=== PATIENT | male | born 1995 | race Caucasian/White ===

== ENCOUNTER 2019-09-25 15:37 | Emergency (ER) | payer OTHER, MEDICAID, SELFPAY ==
[2019-09-25 15:48] VITALS: BP 139/79; PULSE 87; RESP 16; TEMP 36.9; O2SAT 98; BMI 38.0
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
[2019-09-25 18:08] LABS: Add Manual Diff / Slide Review NO; Basophils Absolute Auto 0 /uL (0-100); Basophils Percent Auto 0.4 % (0-2); Eosinophils Absolute Auto 100 /uL (0-450); Eosinophils Percent Auto 0.9 % (2-4); Hematocrit 43.4 % (41-53); Hemoglobin 14.7 g/dL (13.5-17.5); Lymphocytes Absolute Auto 2300 /uL (1100-4500); Lymphocytes Percent Auto 35.7 % (25-40); Mean Corpuscular HGB Conc 33.9 % (30-36); Mean Corpuscular Hemoglobin 30.4 PG (26-34); Mean Corpuscular Volume 89.6 fL (80-100); Monocytes Absolute Auto 700 /uL (0-900); Monocytes Percent Auto 10.1 % (3-14); Neutrophils Absolute Auto 3400 /uL (1500-7000); Neutrophils Percent Auto 52.9 % (50-75); Platelet Count 240 X10^3/uL (150-400); Red Blood Cell Count 4.84 X10^6/uL (4.5-5.9); Red Cell Distribution Width 13.7 % (11.6-14.8); White Blood Cell Count 6.5 X10^3/uL (4.5-11.0)
[2019-09-25 18:11] LABS: UR Morphine/Opiate cutoff 300 Negative (Negative); Ur Creatinine Normal (Normal); Ur Specific Gravity Normal (Normal); Urine Cocaine Negative (Negative); Urine Tetrahydrocannabinol Negative (Negative); Urine pH Normal (Normal)
[2019-09-25 18:12] LABS: Urine Amphetamines Negative (Negative); Urine Barbiturates Negative (Negative); Urine Benzodiazepines Negative (Negative); Urine MDMA Negative (Negative); Urine Methadone Negative (Negative); Urine Methamphetamines Negative (Negative); Urine Oxycodone Negative (Negative); Urine Phencyclidine Negative (Negative); Urine Tricyclic Antidepressant Negative (Negative)
[2019-09-25 18:29] LABS: Acetaminophen < 10 ug/mL (10-30); Alanine Aminotransferase 46 IU/L (<50); Albumin 4.6 g/dL (3.5-5.0); Albumin Globulin Ratio 1.4 (1.0-2.8); Alkaline Phosphatase 69 U/L (38-126); Aspartate Aminotransferase 35 IU/L (17-59); BUN Creatinine Ratio 15.6 (6-22); Bilirubin Total 0.5 mg/dL (0.2-1.3); Blood Urea Nitrogen 14 mg/dL (9-20); Calcium 9.4 mg/dL (8.4-10.2); Carbon Dioxide 29 mmol/L (22-32); Chloride 102 mmol/L (98-107); Estimated Glomerular Filt Rate > 60.0 mL/min (>60); Ethanol (ETOH) < 10 mg/dL; Globulin 3.3 g/dL (1.7-4.1); Glucose 90 mg/dL (70-100); HEMOLYSIS < 15 (0-50); Salicylate < 1.0 mg/dL (<20); Sodium 140 mmol/L (137-145); Total Protein 7.9 g/dL (6.3-8.2)
[2019-09-25 19:14] LABS: Free T4, Direct Thyroxine 0.93 ng/dL (0.78-2.19)
[2019-09-25 19:28] LABS: Thyroid Stimulating Hormone 4.76 uIU/mL (0.47-4.68)
[2019-09-25 20:00] VITALS: BP 130/78; PULSE 87; RESP 18; O2SAT 95
--- NOTE | 2019-09-25 20:05 | CM.SWNOTE ---
Addendum entered by Thea Ridley R.N. 09/25/19 21:23: Suman/Rn [facility], [facility], [facility], all don't have beds available, [facility] [place] have beds and are reviewing for possible placement. Thea Ridley RN. Original Note: CM/account services manager notes: EMR reviewed: patient is a 24 yr old male who presented to the ED with auditory and visual hallucinations. Patient has been DX with Schizophrenia in 2011 while in [place] [facility] at [facility] and does not currently take any medications. Patient does not currently have a counselor. PCP or Psychiatrist. Patient lives with his , children and patients father. Patient has a Hx of meth and Heroin use but has been sober for the last 5 years. Has used Alcohol in the past to help cope with Auditory and Visual hallucinations but has not drank in the last few months. patient does have Suicidal thoughts from time to time but does not have a plan. Patient states he has thought of Rage and of hurting people when his auditory hallucinations are bad. CM/Rn asked if he thinks of anyone inparticular patient stated he does not think of anyone specifically. Patients was at the bedside during CM/RN visit and seemed to calm patient during conversation. Patient is open to getting some help and is voluntarily seeking inpatient treatment. Insurance: [facility] and medicaid. CM/Rn contacted [facility] who does have a bed and are reviewing patients clinicals to determine if they will accept patient. Thea Ridley RN SOCKET PULLER - Inclusion Specialist Assessment SOCKET PULLER - Inclusion Specialist Assessment Start: 09/25/19 19:47 Freq: Status: Active Protocol: Document 09/25/19 19:47 HS (Rec: 09/25/19 20:05 [id number]) SOCKET PULLER/Inclusion Specialist Assessment Time Spent with Patient Start date 09/25/19 Visit Start Time 18:10 End date 09/25/19 Visit End Time 19:05 Total time Care Management spent on 120 mins patient visit-in minutes Mental Health Screening Include Onset, Duration, Intensity Presenting Problem Patient arrived to the ED brought in by his for auditory and visual hallucinations. Precipitating Event(s) patient has struggled with aditory and visual hallucinations since he was 14 years old. Paitent states that he feels axious and parinoid often. No identified current trigger. Current Behavioral Health Provider(s) no current behabioral health Include Facility, Provider, Ph. # provider, patient not currently taking any medicaitons. Psych. Hx Mental Health and Chemical Patient has a Hx of Meth and Dependency heroin addiciton but has been sober for the last 5 years. pamela also has used alcohol to help with hallucinations but has not drank in the last 4 months. Psychiatric Hospitalizations (date(s)/ Pamela was hospitalized while location) in [facility] at [facility] for schizophrenia in 2011. Pamela stopped taking perscribed medicaitons when released from [facility]. Support System(s) patient has a very supportive , children and currently lives with patients family and father. School/Work Patient currently unemployed reciently let go from privious employment Mental Status Orientation (Person/Place/Time) Pamela was alert and oriented x3 at time of CM/RN visit Affect Met with patient with present. Patient was calm, but slow and sad. Thought Content - Specify/Describe Pamela stated he has Auditory Obsessions, Delusions, Hallucinations and visual hallucinations. Patient states that he talkes with people and images of light and sometime shadow creatures present next to the people he is talking to. Patient also says that the voices he hears tell him that his is cheating or present other negative thouhts . Thought Processes (Vmkayjj-Rhepbwwc-Hyim Patient thought process seems Gloseaks-Odboyndw-Hvzghwtxvw- logical with details but with Uaxsprvlrpdncj-Onkbvey-Cmocjogcausc- some disorganization Thought Blocking) Speech (Myficw-Ktjg-Vtbglih-Rapid-Soft- patients speech is slowed, Loud-Pressured) soft and slurred at times Motor (Rkqwsu-Ulvtxtxjv-Fwyr-Other) normal Insight (Present-Partially Present- Present Impaired) Memory (Plwmhuimy-Wwkjqr-Smrrbf, intact Impaired-Intact) Concentration (Intact-Impaired) imparied- patient needed to be re-asked questions periodically to gain attention . Attention (Intact-Impaired) impaired - patinet had a hard time attending during CM/Rn meeting and needed to have questions re-asked periodically. Behavior (Appropriate-Inappropriate) appropriate Risk Assessment Suicidal Ideation (Plan) Yes: patient has thoughts of Suicide but does not currently have a plan Homicidal Ideation (Plan) No Comment Patient does have thoughts of rage from time to time and thoughts of hurting people but no one particularly and has not acted on those feelings.
[2019-09-25] MEDS: OLANZapine ODT 10 MG TAB PO (22:11)
--- NOTE | 2019-09-25 22:11 | PC.NURSE ---
NICOLE at bedside discussing plan of care with patient and . Patient apprehensive about in patient hospitalization secondary to his parole offices and DOC plan. patient states he can't leave the county due to his DOC. He is concerned that he would get in trouble for leaving for inpatient placement. Patient reports his anxiety is increasing I don't want to be locked up again I have been locked up my whole fucking life. I do not want to be locked up and patient contract for safety and agreeable to come back if things change. Patient denies SI/HI at this time.
--- NOTE | 2019-09-25 22:16 | PC.NURSE ---
Patient currently stating that he thinks he is safe to go home after medication and speak with his own PCP about restarting his medication. No current homicidal or suicidal ideation. A&Ox3 with at bedside. They agree to safety plan. Dr. Beyer at bedside.
[2019-09-25 22:33] VITALS: BP 135/89; PULSE 93; RESP 17; TEMP 36.6; O2SAT 96
== END 2019-09-25 22:41 | disposition home or self-care (01) ==
PROVIDERS: Emergency Medicine; Emergency Provider Nurse Practitioner Family
DX: F20.0 Paranoid schizophrenia (principal)
CPT/HCPCS: 36415; 80053; 80305; 80320; 80329; 81003; 84439; 84443; 85025; 99283; 99284; G0480

== ENCOUNTER 2020-07-09 22:05 | Emergency (ER) | payer OTHER, MEDICAID, SELFPAY ==
[2020-07-09 22:14] VITALS: BP 153/100; PULSE 78; RESP 22; TEMP 36.9; O2SAT 97
--- NOTE | 2020-07-09 22:27 | ED.GENADULT ---
HPI - General Adult General Chief complaint: Dizziness Stated complaint: fever, positive COVID Time Seen by Provider: 07/09/20 22:07 Source: patient Mode of arrival: Ambulatory Limitations: no limitations History of Present Illness HPI narrative: Patient is a 24-year-old male who was diagnosed with COVID-19 approximately 4 days ago. He comes to the emergency department this evening because he states that earlier today he felt like he was having problems breathing. He felt like his left hand and left foot were tingling and potentially changing colors. He also was lightheaded. He does not have a pulse oximeter at home. He was concerned about his symptoms because his father has heart problems and he was concerned that potentially he had them as well. He states that he feels somewhat better being here in the emergency department. His is also positive for COVID-19. Related Data Home Medications Medication Instructions Recorded Confirmed No Known Home Medications 09/25/19 09/25/19 Allergies Allergy/AdvReac Type Severity Reaction Status Date / Time No Known Drug Allergies Allergy Verified 09/25/19 15:56 Review of Systems Constitutional Constitutional: Denies body ache(s), Denies chills, Reports fever(s) and Denies headache(s) ENT Ears, Nose, Mouth, and Throat: Denies headache(s) Cardiovascular Cardiovascular: Denies chest pain and Reports dyspnea Respiratory Respiratory: Reports dyspnea Gastrointestinal Gastrointestinal: Denies abdominal pain, Denies nausea and Denies vomiting Genitourinary Genitourinary: Denies dysuria Genitourinary: Denies dysuria Musculoskeletal Musculoskeletal: Reports tingling Integumentary/Breasts Skin/Breast: Denies rash Neurologic Neurologic: Denies headache(s) and Reports tingling Psychiatric Psychiatric: Reports anxiety Patient History Medical History Anxiety (Acute) Depression (Acute) Hallucinations (Acute) PTSD (post-traumatic stress disorder) (Acute) Schizophrenia (Acute) Social History Smoking Status: Current every day smoker alcohol intake: current substance use type: does not use Smoking Status: Current every day smoker tobacco type: vaping Substance Use Type: does not use Exam Initial Vital Signs Initial Vital Signs: Vital Signs Temperature 98.5 F 07/09/20 22:14 Pulse Rate 78 07/09/20 22:14 Respiratory Rate 22 07/09/20 22:14 Blood Pressure 153/100 H 07/09/20 22:14 Pulse Oximetry 97 07/09/20 22:14 Const General: cooperative and comfortable Limitations: mental status not altered HENMT Head: normal to inspection and normocephalic Resp Effort & Inspection: normal respiratory effort Auscultation: clear to auscultation bilaterally Cardio Rate: regular rate Rhythm: regular rhythm Skin Lesions: no lesions Rashes: no rashes Neuro General: patient alert and patient awake Cognition: normal cognition Speech: speech normal Extrem General: normal to inspection and capillary refill normal Psych Appearance: grossly normal and well kempt Course Vital Signs Vital signs: Vital Signs - 8 hr 07/09/20 22:14 Temperature 98.5 F Pulse Rate 78 Respiratory Rate 22 Blood Pressure 153/100 H Pulse Oximetry 97 Medical Decision Making MDM Narrative Medical decision making narrative: Patient not tachypneic, not hypoxic, has a normal left upper extremity and left lower extremity exam. Brisk cap refill. Strong pulses. Lungs are clear. He has known COVID-19. The there is no indication for chest x-ray. No indication for admission to the hospital. Provided reassurance to the patient. Informed him that if his symptoms do worsen her your to have continued problems breathing he did retract emergency department. He expressed understanding and agreement. Discharge Plan Departure Patient Disposition: Home Clinical Impression: COVID-19 Discharge Date/Time: 07/09/20 22:50 Instructions: Coronavirus Disease 2019 Activity Restrictions/Additional Instructions: Your oxygen saturations and exam here in the emergency department are normal. Recommend that you quarantine herself as directed by the CDC guidelines. Contact your primary provider further follow-up. Return to the emergency department for any new or worsening symptoms Prescriptions: No Action No Known Home Medications RF: 0
== END 2020-07-09 22:50 | disposition home or self-care (01) ==
PROVIDERS: Emergency Provider Emergency Medicine
DX: U07.1 COVID-19 (principal); R06.09 Other forms of dyspnea; R50.9 Fever, unspecified; R20.2 Paresthesia of skin; F41.9 Anxiety disorder, unspecified
CPT/HCPCS: 99281

== ENCOUNTER → 2023-03-07 10:35 | Outpatient (CLI) | payer OTHER, MEDICAID, SELFPAY ==
--- NOTE | 2023-03-07 10:37 | DI.RAD.S_ITS ---
PROCEDURE: XR ELBOW LT MIN 3V INDICATIONS: left elbow pain TECHNIQUE: 3 views of the elbow were acquired. COMPARISON: None. FINDINGS: Bones: No acute fractures or dislocations. No suspicious bony lesions. Soft tissues: No elbow joint effusion. No suspicious soft tissue calcifications. IMPRESSION: No acute osseous abnormality. If clinical suspicion and/or symptoms persist, additional imaging with repeat plain films, or advanced imaging (e.g. CT, MRI) may be helpful for further assessment. Approved by: Rickey Bowser M.D. on 03/07/2023 at 12:27
== END ==
PROVIDERS: Referring Provider Physician Assistant; Visit Provider Physician Assistant
DX: M25.522 Pain in left elbow (principal)
CPT/HCPCS: 73080

== ENCOUNTER 2023-04-09 21:11 | Emergency (ER) | payer OTHER, MEDICAID, SELFPAY ==
[2023-04-09 21:15] VITALS: BP 148/82; PULSE 90; RESP 18; TEMP 36.2; O2SAT 97; BMI 47.5
--- NOTE | 2023-04-09 21:20 | DI.RAD.S_ITS ---
PROCEDURE: XR HAND LT MIN 3V INDICATIONS: Injury TECHNIQUE: 3 views of the hand(s) acquired. COMPARISON: None. FINDINGS: Bones: No fractures or dislocations. Carpal bones are normally aligned. No suspicious bony lesions. Soft tissues: No suspicious soft tissue calcifications. IMPRESSION: No trauma found. Dictated by: Joseph Solo M.D. on 04/09/2023 at 22:06 Approved by: Joseph Solo M.D. on 04/09/2023 at 22:07
== END 2023-04-09 23:31 | disposition left against medical advice (07) ==
PROVIDERS: Emergency Provider Emergency Medicine
DX: S69.92XA Unspecified injury of left wrist, hand and finger(s), initial encounter (principal); V00.131A Fall from skateboard, initial encounter
CPT/HCPCS: 73130; 99281

== ENCOUNTER 2024-03-06 18:51 | Emergency (ER) | payer OTHER, MEDICAID, SELFPAY ==
--- NOTE | 2024-03-06 18:54 | DI.RAD.S_ITS ---
PROCEDURE: XR ANKLE RT MIN 3V INDICATIONS: pain after injury TECHNIQUE: 3 views of the ankle were acquired. COMPARISON: None. FINDINGS: Bones: No fractures or dislocations. Ankle mortise is normally aligned. No suspicious bony lesions. Soft tissues: No tibiotalar joint effusion. Achilles tendon appears normal. IMPRESSION: No acute bony abnormality or significant effusion. Dictated by: Henok Zelaya M.D. on 03/06/2024 at 19:26 Approved by: Henok Zelaya M.D. on 03/06/2024 at 19:27
[2024-03-06 18:59] VITALS: BP 143/77; PULSE 88; RESP 16; TEMP 37.2; O2SAT 99; BMI 47.0
--- NOTE | 2024-03-06 19:08 | ED.LOWEXIN ---
HPI - Extremity Injury (Lower) General Chief Complaint: Extremity Injury, Lower Stated Complaint: rt ankle inj Time Seen by Provider: 03/06/24 18:54 Source: patient Mode of arrival: Wheelchair History of Present Illness HPI Narrative: 28-year-old male here for evaluation for right ankle injury. Earlier this morning the patient stated that he tripped and fell and felt a pop in his right ankle. Has had swelling in it since then. Has been ambulatory but as the day has gone on it has become more painful. No other injuries from the event. Related Data Home Medications Medication Instructions Recorded Confirmed No Known Home Medications 09/25/19 09/25/19 Allergies Allergy/AdvReac Type Severity Reaction Status Date / Time No Known Drug Allergies Allergy Verified 09/25/19 15:56 Review of Systems Constitutional Constitutional: Reports system reviewed and no additional complaints, except as documented Musculoskeletal Musculoskeletal: Reports system reviewed and no additional complaints, except as documented Integumentary/Breasts Skin/Breast: Reports system reviewed and no additional complaints, except as documented Neurologic Neurologic: Reports system reviewed and no additional complaints, except as documented Hematologic/Lymphatic On Anticoagulants: No Patient History Medical History PTSD (post-traumatic stress disorder) Schizophrenia Hallucinations Anxiety Depression Social History Smoking Status: Former smoker alcohol intake: current substance use type: does not use Smoking Status: Former smoker tobacco type: vaping Substance Use Type: does not use Exam Initial Vital Signs Initial Vital Signs: Vital Signs Temperature 98.9 F 03/06/24 18:59 Pulse Rate 88 03/06/24 18:59 Respiratory Rate 16 03/06/24 18:59 Blood Pressure 143/77 H 03/06/24 18:59 Pulse Oximetry 99 03/06/24 18:59 Oxygen Delivery Method Room Air 03/06/24 18:59 Cardio Pulses: dorsalis pedis present on the right Skin General: no rashes or lesions noted Neuro Sensory Exam: no sensory deficits noted Extrem Other: No proximal fibular tenderness. Achilles tendon is intact. No tenderness along the medial malleolus. No tenderness of the base of the 5th metatarsal. No tenderness along the Lisfranc joint. Is tender along the lateral malleolus. Swelling along the lateral malleolus. Course Orders Ordered: ED Orders 03/06/24 18:54 XR ankle RT min 3V Stat Vital Signs Vital signs: Vital Signs - 8 hr 03/06/24 18:59 03/06/24 20:09 Temperature 98.9 F Pulse Rate 88 86 Respiratory Rate 16 18 Blood Pressure 143/77 H 149/83 H Pulse Oximetry 99 97 Oxygen Delivery Method Room Air Room Air MDM - Extremity Injury (Lower) Imaging Data Extremity x-ray #1: Radiologist's Impression: PROCEDURE: XR ANKLE RT MIN 3V INDICATIONS: pain after injury TECHNIQUE: 3 views of the ankle were acquired. COMPARISON: None. FINDINGS: Bones: No fractures or dislocations. Ankle mortise is normally aligned. No suspicious bony lesions. Soft tissues: No tibiotalar joint effusion. Achilles tendon appears normal. IMPRESSION: No acute bony abnormality or significant effusion. [facility] Narrative Medical decision making narrative: X-ray shows no signs of fracture or dislocation. He was neurovascularly intact. He was given an Warren bandage for comfort and also crutches for comfort. We did discuss the x-ray findings. Discussed conservative measures that he can try at home for a sprained ankle. Will discharge patient home with instructions for these conservative measures. He was given return precautions. He expressed understanding and agreement. Discharge Plan Departure Patient Disposition: Home Clinical Impression: Ankle sprain Instructions: How to Use Crutches, DI for Ankle Sprain, How To Perform RICE (Rest, Ice, Compress, Elevate), How to Apply an Elastic Wrap on Ankle Activity Restrictions/Additional Instructions: There were no fractures noted on the x-rays today. You can walk on your right leg as tolerated. I do recommend you try to keep it elevated and use ice as much as possible. You can take Tylenol/ibuprofen for any discomfort. Return to the emergency department for new symptoms. Prescriptions: No Action No Known Home Medications Stand Alone Forms: Patient Portal/API, Work Release Note
[2024-03-06 20:09] VITALS: BP 149/83; PULSE 86; RESP 18; O2SAT 97
== END 2024-03-06 20:10 | disposition home or self-care (01) ==
PROVIDERS: Emergency Provider Emergency Medicine
DX: S93.401A Sprain of unspecified ligament of right ankle, initial encounter (principal); W18.40XA Slipping, tripping and stumbling without falling, unspecified, initial encounter
CPT/HCPCS: 73610; 99282

== ENCOUNTER 2024-05-31 10:09 | Emergency (ER) | payer OTHER, MEDICAID, SELFPAY ==
[2024-05-31] VITALS (12 sets, daily range): BP systolic 137–156; BP diastolic 69–106; PULSE 84–104; RESP 16–20; TEMP 37.2; O2SAT 95–98; BMI 43.6
--- NOTE | 2024-05-31 10:19 | DI.RAD.S_ITS ---
PROCEDURE: XR CHEST 1V INDICATIONS: suspected sepsis TECHNIQUE: One view of the chest was acquired. COMPARISON: None. FINDINGS: Surgical changes and devices: None. Lungs and pleura: Submaximal inspiration. No gross infiltrates. No pleural effusions or pneumothorax. Mediastinum: Mediastinal contours appear normal. Heart size is normal. Bones and chest wall: No suspicious bony lesions. Overlying soft tissues appear unremarkable. IMPRESSION: Submaximal inspiration. No gross infiltrates. Dictated by: Shad Alarcon M.D. on 05/31/2024 at 12:40 Approved by: Shad Alarcon M.D. on 05/31/2024 at 12:41
--- NOTE | 2024-05-31 10:28 | EKG_ITS ---
[facility] [address] [place] [address] Test Date: 2024-05-31 Pat Name: Otilio Sanches Department: [facility] Room: Gender: Male Tallow Pumper: : 1995 Requested By: Order Number: [id number] Reading MD: Luis Manuel Joshi MD Measurements Intervals [place] Rate: 95 P: 33 DC: 160 QRS: 8 QRSD: 80 T: 27 QT: 338 QTc: 424 Interpretive Statements Normal sinus rhythm Electronically Signed On 05-31-2024 13:43:49 PDT by Luis Manuel Joshi MD
[2024-05-31] MEDS: SODIUM CHLORIDE 0.9% 1,000 ML 1000 ML IV (10:39)
[2024-05-31] MEDS: ALBUTEROL 2.5 MG/3 ML NEB (ADULT) INH ×2 (10:44→13:13)
[2024-05-31 10:57] LABS: Add Manual Diff / Slide Review NO; Basophils Absolute Auto 100 /uL (0-100); Basophils Percent Auto 0.8 % (0-2); Eosinophils Absolute Auto 100 /uL (0-450); Eosinophils Percent Auto 1.8 % (2-4); Hemoglobin 14.1 g/dL (13.5-17.5); Lymphocytes Absolute Auto 1500 /uL (1100-4500); Lymphocytes Percent Auto 21.5 % (25-40); Mean Corpuscular HGB Conc 33.6 % (30-36); Mean Corpuscular Hemoglobin 29.6 PG (26-34); Monocytes Absolute Auto 700 /uL (0-900); Monocytes Percent Auto 10.3 % (3-14); Neutrophils Absolute Auto 4600 /uL (1500-7000); Neutrophils Percent Auto 65.6 % (50-75); Platelet Count 227 X10^3/uL (150-400); Red Blood Cell Count 4.77 X10^6/uL (4.5-5.9); Red Cell Distribution Width 14.6 % (11.6-14.8); White Blood Cell Count 7.1 X10^3/uL (4.5-11.0)
[2024-05-31 11:05] LABS: INR 1.1 (0.9-1.3); Prothrombin Time 12.8 SECONDS (9.4-12.5)
[2024-05-31 11:08] LABS: PTT Partial Thromboplastin Tim 37 SECONDS (25.1-36.5)
[2024-05-31 11:20] LABS: Adenovirus Not Detected (Not Detect); B. parapertussis Not Detected (Not Detecte); Bordetella pertussis Not Detected (Not Detect); Chlamydophila pneumoniae Not Detected (Not Detect); Coronavirus 229E Not Detected (Not Detect); Coronavirus HKU1 Not Detected (Not Detect); Coronavirus NL 63 Not Detected (Not Detect); Coronavirus OC43 Not Detected (Not Detect); Human Metapneumovirus Not Detected (Not Detect); Human Rhinovirus/Enterovirus Not Detected (Not Detect); Influenza A Not Detected (Not Detect); Influenza B Not Detected (Not Detect); Mycoplasma pneumoniae Not Detected (Not Detect); Parainfluenza Virus 1 Not Detected (Not Detect); Parainfluenza Virus 2 Not Detected (Not Detect); Parainfluenza Virus 3 Not Detected (Not Detect); Parainfluenza Virus 4 Not Detected (Not Detect); Respiratory Syncytial Virus Not Detected (Not Detect); SARS- CoV-2 Not Detected (Not Detecte)
[2024-05-31 11:32] LABS: Alanine Aminotransferase 93 IU/L (<50); Albumin 4.6 g/dL (3.5-5.0); Albumin Globulin Ratio 1.3 (1.0-2.8); Alkaline Phosphatase 74 U/L (38-126); Aspartate Aminotransferase 61 IU/L (17-59); BUN Creatinine Ratio 12.4 (6-22); Bilirubin Total 0.8 mg/dL (0.2-1.3); Blood Urea Nitrogen 11 mg/dL (9-20); Calcium 9.1 mg/dL (8.4-10.2); Carbon Dioxide 25 mmol/L (22-32); Chloride 102 mmol/L (98-107); Estimated Glomerular Filt Rate > 60 mL/min (>60); Globulin 3.6 g/dL (1.7-4.1); Glucose 111 mg/dL (70-100); HEMOLYSIS < 15 (0-50); Lipase 69 U/L (23-300); Sodium 137 mmol/L (137-145); Total Protein 8.2 g/dL (6.3-8.2)
[2024-05-31 11:33] LABS: Lactate (Lactic Acid) 0.9 mmol/L (0.7-2.1)
[2024-05-31 12:08] LABS: Procalcitonin 0.149 ng/mL (<0.5)
--- NOTE | 2024-05-31 12:41 | ED.URI ---
HPI - URI/Sore Throat General Chief Complaint: Upper Respiratory Symptoms Stated Complaint: fever, chest feels tight, hurts to cough Time Seen by Provider: 05/31/24 10:41 Source: patient Mode of arrival: Ambulatory History of Present Illness HPI Narrative: 28 year old male with 4 days duration dry cough, chest pain anterior with coughing, some shortness of breath, no known exposure to persons with recent repsiratory illness symptoms, noleg pain or swelling symptoms, no injury or trauma. No history of chronic heart or lung problems. Related Data Previous Rx's Medication Instructions Recorded albuterol sulfate 90 mcg/actuation 2 puff inhalation Q6H PRN 05/31/24 aerosol inhaler shortness of breath or wheezing #8.5 grams prednisone 20 mg tablet 40 mg (2 x 20 mg) PO DAILY 5 days 05/31/24 #10 tabs Allergies Allergy/AdvReac Type Severity Reaction Status Date / Time No Known Drug Allergies Allergy Verified 05/31/24 10:13 Review of Systems Review of Systems Narrative: see HPI Patient History Medical History (Updated 05/31/24 @ 13:08 by Everton Foreman MD) PTSD (post-traumatic stress disorder) Schizophrenia Hallucinations Anxiety Depression Social History Smoking Status: Former smoker alcohol intake: current substance use type: does not use Smoking Status: Former smoker tobacco type: vaping alcohol intake frequency: holidays/special occasions only Substance Use Type: does not use Exam Narrative Exam Narrative: GENERAL: Well-developed patient, in mild distress. HEAD: Atraumatic. Normocephalic. EYES: Pupils equal round and reactive. Extraocular motions intact. No scleral icterus. No injection or drainage. ENT: Nose without bleeding, purulent drainage. Throat without erythema, tonsillar hypertrophy or exudate. Airway patent. NECK: Trachea midline. Non tender CARDIOVASCULAR: Regular rate and rhythm without murmurs, gallops, or rubs. RESPIRATORY: Clear to auscultation. Breath sounds equal bilaterally. No wheezes, rales, or rhonchi. GASTROINTESTINAL: Abdomen soft, non-tender, nondistended. EXTREMITIES: No edema or joint tenderness. BACK: Nontender without deformity or crepitance. No flank tenderness. NEURO: AOx3. SKIN: No rash or erythema of visible areas Initial Vital Signs Initial Vital Signs: Vital Signs Temperature 98.9 F 05/31/24 10:13 Pulse Rate 104 H 05/31/24 10:13 Respiratory Rate 16 05/31/24 10:13 Blood Pressure 152/99 H 05/31/24 10:13 Pulse Oximetry 95 05/31/24 10:13 Oxygen Delivery Method Room Air 05/31/24 10:13 Course Orders Ordered: Discontinued Medications Albuterol (Albuterol 2.5 Mg/3 Ml Neb (Adult)) 2.5 mg INH NOW ONE Stop: 05/31/24 10:43 Last Admin: 05/31/24 10:44 Dose: 2.5 mg Documented By: LELAND Albuterol (Albuterol 2.5 Mg/3 Ml Neb (Adult)) 2.5 mg INH NOW ONE Stop: 05/31/24 13:04 Last Admin: 05/31/24 13:13 Dose: 2.5 mg Documented By: VALENTINE Sodium Chloride (Normal Saline 0.9%) 1,000 mls @ 1,000 mls/hr IV BOLUS ONE Stop: 05/31/24 11:18 Last Infusion: 05/31/24 12:16 Dose: Infused Documented By: Admin: 05/31/24 10:39 Dose: 1,000 mls/hr Documented By: ANT Methylprednisolone (Methylprednisolone 125 Mg/2 Ml Vial) 125 mg IV NOW ONE Stop: 05/31/24 13:04 Last Admin: 05/31/24 13:13 Dose: 125 mg Documented By: VALENTINE Ondansetron HCl (Ondansetron 4 Mg/2 Ml Inj) 4 mg IV NOW PRN PRN Reason: Nausea And Vomiting Ondansetron HCl (Ondansetron 4 Mg Odt) 4 mg SL NOW PRN PRN Reason: Nausea And Vomiting Vital Signs Vital signs: Vital Signs - 8 hr 05/31/24 12:30 05/31/24 12:31 05/31/24 12:31 Pulse Rate 84 90 Blood Pressure 137/69 Pulse Oximetry 97 97 05/31/24 13:00 05/31/24 13:00 Pulse Rate 90 Blood Pressure 146/74 H Pulse Oximetry 96 MDM - URI/Sore Throat Lab Data Attestation: I reviewed the patient's lab results. 05/31/24 10:40 05/31/24 10:40 Labs: Lab Results 05/31/24 05/31/24 Range/Units 10:30 10:40 WBC 7.1 (4.5-11.0) X10^3/uL RBC 4.77 (4.5-5.9) X10^6/uL Hgb 14.1 (13.5-17.5) g/dL Hct 42.0 (41-53) % MCV 88.0 (80-100) fL MCH 29.6 (26-34) PG MCHC 33.6 (30-36) % RDW 14.6 (11.6-14.8) % Plt Count 227 (150-400) X10^3/uL Neut % (Auto) 65.6 (50-75) % Lymph % (Auto) 21.5 L (25-40) % [place] % (Auto) 10.3 (3-14) % Eos % (Auto) 1.8 L (2-4) % Baso % (Auto) 0.8 (0-2) % Neut # (Auto) 4600 (9462-4141) /uL Lymph # (Auto) 1500 (2784-7983) /uL [place] # (Auto) 700 (0-900) /uL Eos # (Auto) 100 (0-450) /uL Baso # (Auto) 100 (0-100) /uL PT 12.8 H (9.4-12.5) SECONDS INR 1.1 (0.9-1.3) APTT 37 H (25.1-36.5) SECONDS Sodium 137 (137-145) mmol/L Potassium 4.0 (3.4-5.1) mmol/L Chloride 102 (98-107) mmol/L Carbon Dioxide 25 (22-32) mmol/L BUN 11 (9-20) mg/dL Creatinine 0.89 (0.66-1.25) mg/dL Estimated GFR > 60 (>60) mL/min BUN/Creatinine Ratio 12.4 (6-22) Glucose 111 H (70-100) mg/dL Lactate 0.9 (0.7-2.1) mmol/L Calcium 9.1 (8.4-10.2) mg/dL Total Bilirubin 0.8 (0.2-1.3) mg/dL AST 61 H (17-59) IU/L ALT 93 H (<50) IU/L Alkaline Phosphatase 74 (38-126) U/L Total Protein 8.2 (6.3-8.2) g/dL Albumin 4.6 (3.5-5.0) g/dL Globulin 3.6 (1.7-4.1) g/dL Albumin/Globulin Ratio 1.3 (1.0-2.8) Lipase 69 (23-300) U/L Procalcitonin 0.149 (<0.5) ng/mL Chlamy pneumoniae PCR Not detected (Not Detect) Adenovirus (PCR) Not detected (Not Detect) B.parapertussis DNA PCR Not detected (Not Detecte) Coronavirus OC43 (PCR) Not detected (Not Detect) Coronavirus HKU1 (PCR) Not detected (Not Detect) Coronavirus 229E (PCR) Not detected (Not Detect) SARS-CoV-2 (PCR) Not detected (Not Detecte) Coronavirus NL63 (PCR) Not detected (Not Detect) Human Metapneumovir PCR Not detected (Not Detect) Influenza Type A (PCR) Not detected (Not Detect) Influenza Type B (PCR) Not detected (Not Detect) M. pneumoniae (PCR) Not detected (Not Detect) Parainfluenza 1 (PCR) Not detected (Not Detect) Parainfluenza 2 (PCR) Not detected (Not Detect) Parainfluenza 3 (PCR) Not detected (Not Detect) Parainfluenza 4 (PCR) Not detected (Not Detect) RSV (PCR) Not detected (Not Detect) Entero/Rhino (PCR) Not detected (Not Detect) Imaging Data Chest x-ray: Radiologist's Impression: [address] [address] XRay Report Signed Patient: Otilio Sanches III MR#: [id number] : 1995 Acct:[id number] Age/Sex: 28 / M Date of Service: 05/31/24 Loc: ED Accession Number: [id number] Procedure: XR chest 1V Ordering Provider: Everton Foreman MD PROCEDURE: XR CHEST 1V INDICATIONS: suspected sepsis TECHNIQUE: One view of the chest was acquired. COMPARISON: None. FINDINGS: Surgical changes and devices: None. Lungs and pleura: Submaximal inspiration. No gross infiltrates. No pleural effusions or pneumothorax. Mediastinum: Mediastinal contours appear normal. Heart size is normal. Bones and chest wall: No suspicious bony lesions. Overlying soft tissues appear unremarkable. IMPRESSION: Submaximal inspiration. No gross infiltrates. Dictated by: Shad Alarcon M.D. on 05/31/2024 at 12:40 Approved by: Shad Alarcon M.D. on 05/31/2024 at 12:41 ECG Data Attestation: I personally reviewed and interpreted this ECG as follows: Interpretation: Normal sinus rhythm with rate of 95. No obvious ST segment elevation or depression changes. T-wave flattening lead 3, upright T-waves other contiguous inferior leads. TX 160, QRS 80, QTC 424. MDM Narrative Medical decision making narrative: 28-year-old male with a no chronic heart or lung problems with 4 days cough, increased heart rate initially noted, possible SIRS, no fever, sepsis labs and tests ordered per protocol at triage. Screening EKG without obvious ischemic changes. Troponin negative. White blood cell count not elevated. Lactate was normal. Normal renal function. Normal LFTs. Glucose normal. Chest x-ray normal. Respiratory swab negative for COVID and influenza and other pathogens tested. Some wheeze on exam, no oxygen requirement, IV Solu-Medrol since IV access available. SVN albuterol. Prescription for prednisone pulse next few days sent to his pharmacy, also albuterol inhaler to use next few days. Recheck advised with his regular provider Tuesday early next week. Return precautions discussed. Discharge Plan Departure Patient Disposition: Home Clinical Impression: Acute upper respiratory infection, Wheezing Activity Restrictions/Additional Instructions: 4 days duration of cough, slight wheeze on examination but speaking in full sentences, no respiratory distress, normal oxygenation on room air. Chest x-ray showed no obvious pneumonia, per Radiology reading. Swabs for influenza and COVID and other viral illnesses were negative. Screening labs not suggestive of severe sepsis. Symptoms most consistent with upper respiratory viral infection with secondary wheezing. Steroids initiated. Breathing treatment given. Further steroids by mouth advised next few days, and use of inhaler next few days at home. Recheck with your regular doctor early next week advised. Return to this/nearest emergency department for any change worsening symptoms or any concerns prior Prescriptions: New prednisone 20 mg tablet 40 mg PO DAILY 5 Days Qty: 10 0RF albuterol sulfate 90 mcg/actuation HFA aerosol inhaler 2 puff inhalation Q6H PRN (Reason: shortness of breath or wheezing) Qty: 8.5 0RF Stand Alone Forms: Patient Portal/API
[2024-05-31] MEDS: methylPREDNISolone 125 MG/2 ML VIAL IV (13:13)
== END 2024-05-31 13:40 | disposition home or self-care (01) ==
PROVIDERS: Emergency Provider Emergency Medicine
DX: J06.9 Acute upper respiratory infection, unspecified (principal); R06.2 Wheezing; R05.9 Cough, unspecified; R06.02 Shortness of breath; Z11.52 Encounter for screening for COVID-19
CPT/HCPCS: 36415; 71045; 80053; 83605; 83690; 84145; 85025; 85610; 85730; 87040; 87633; 93005; 93010; 94640; 96361; 96374; 99284; J2919; J7613

== ENCOUNTER 2025-04-03 20:14 | Emergency (ER) | payer OTHER, MEDICAID, SELFPAY ==
[2025-04-03] VITALS (13 sets, daily range): BP systolic 125–175; BP diastolic 67–107; PULSE 80–109; RESP 14–22; TEMP 36.8; O2SAT 93–98; BMI 51.3
--- NOTE | 2025-04-03 20:17 | DI.RAD.S_ITS ---
PROCEDURE: XR CHEST 1V INDICATIONS: Chest Pain TECHNIQUE: One view of the chest was acquired. COMPARISON: [facility], CR, XR CHEST 1V, 05/31/2024, 10:40. FINDINGS: Surgical changes and devices: None. Lungs and pleura: Lungs are clear. No pleural effusions or pneumothorax. Mediastinum: Mediastinal contours appear normal. Heart size is normal. Bones and chest wall: No suspicious bony lesions. Overlying soft tissues appear unremarkable. IMPRESSION: No acute pulmonary process. Dictated by: Lynne Richardson M.D. on 04/03/2025 at 21:20 Approved by: Lynne Richardson M.D. on 04/03/2025 at 21:20
--- NOTE | 2025-04-03 20:21 | EKG_ITS ---
[address] [address] Test Date: 2025-04-03 Pat Name: Otilio Sanches Department: [facility] Room: Gender: Male [employer]: [place] : 1995 Requested By: Order Number: [id number] Reading MD: Luis Manuel Joshi MD Measurements Intervals [place] Rate: 100 P: 37 LA: 172 QRS: 0 QRSD: 90 T: 30 QT: 352 QTc: 454 Interpretive Statements Normal sinus rhythm Electronically Signed On 04-04-2025 10:49:43 PDT by Luis Manuel Joshi MD
--- NOTE | 2025-04-03 20:27 | DI.CT.S_ITS ---
PROCEDURE: CT HEAD/BRAIN WO CON INDICATIONS: altered mental status, uncontrolled BP, chest pain TECHNIQUE: Noncontrast 4.5 mm thick angled axial sections acquired from the foramen magnum to the vertex, with coronal and sagittal reformats. For radiation dose reduction, the following was used: automated exposure control, adjustment of mA and/or kV according to patient size. COMPARISON: CT, CT BRAIN WO CON, 08/19/2015, 17:44. FINDINGS: Image quality: Diagnostic. CSF spaces: Basal cisterns are patent. No extra-axial fluid collections. Ventricles are normal in size and shape. Brain: No midline shift. No intracranial mass effect or hemorrhage. Valles- white matter interface is normal. Skull and face: Calvarium and visualized facial bones are intact, without suspicious lesions. Sinuses: Visualized sinuses and mastoids are clear. IMPRESSION: No acute intracranial pathology. Dictated by: Lynne Richardson M.D. on 04/03/2025 at 21:07 Approved by: Lynne Richardson M.D. on 04/03/2025 at 21:07
[2025-04-03] MEDS: ASPIRIN 81 MG CHEW TAB 324 MG PO (20:30)
[2025-04-03] MEDS: LABETALOL 20 MG/4 ML SYRINGE IV (20:31)
[2025-04-03 20:43] LABS: Add Manual Diff / Slide Review NO; Hematocrit 41.2 % (41-53); Hemoglobin 13.8 g/dL (13.5-17.5); Lymphocytes Absolute Auto 2000 /uL (1100-4500); Mean Corpuscular HGB Conc 33.4 % (30-36); Mean Corpuscular Hemoglobin 30.1 PG (26-34); Mean Corpuscular Volume 90.1 fL (80-100); Platelet Count 264 X10^3/uL (150-400)
[2025-04-03 20:50] LABS: INR 1.0 (0.9-1.3); Prothrombin Time 11.7 SECONDS (9.4-12.5)
[2025-04-03 20:53] LABS: PTT Partial Thromboplastin Tim 30 SECONDS (25.1-36.5)
[2025-04-03 20:56] LABS: Alanine Aminotransferase 230 IU/L (<50); Albumin 4.7 g/dL (3.5-5.0); Albumin Globulin Ratio 1.2 (1.0-2.8); Alkaline Phosphatase 66 U/L (38-126); Blood Urea Nitrogen 11 mg/dL (9-20); Calcium 9.7 mg/dL (8.4-10.2); Carbon Dioxide 27 mmol/L (22-32); Chloride 103 mmol/L (98-107); Creatine Kinase 106 U/L (55-170); Estimated Glomerular Filt Rate > 60 mL/min (>60); Globulin 3.8 g/dL (1.7-4.1); Glucose 90 mg/dL (70-99); HEMOLYSIS < 15 (0-50); Lipase 104 U/L (23-300); Magnesium 2.3 mg/dL (1.6-2.3); Potassium 3.5 mmol/L (3.4-5.1); Sodium 139 mmol/L (137-145); Total Protein 8.5 g/dL (6.3-8.2)
[2025-04-03 21:07] LABS: NT-proBNP (BNP-Adult 18+) < 20 pg/mL (<125); Troponin I < 0.012 ng/mL (0.01-0.034)
--- NOTE | 2025-04-03 21:18 | ED_ITS ---
HPI - General Adult General Chief complaint: Altered Mental Status Stated complaint: Chest Pain, Fatigue, Confusion Time Seen by Provider: 04/03/25 20:20 Source: patient and family Mode of arrival: Wheelchair History of Present Illness HPI narrative: 29-year-old gentleman with a BMI of 51, severe sleep apnea, untreated hypertension brought in by his with complaints of altered mental status worsening over the course of today. He reports that he has been having difficulty with his sleep apnea mask and has not appointment with his physician to discuss this tomorrow. Denies any recreational drug or alcohol use. No fevers or chills. Does note headache and fatigue.On initial presentation he has significantly somnolent, hypertensive, complaining of chest pain and headache. Related Data Previous Rx's ?Medication ?Instructions ?Recorded albuterol sulfate 90 mcg/actuation 2 puff inhalation Q 6H PRN 05/31/24 aerosol inhaler shortness of breath or wheez ing #8.5 grams Allergies Allergy/AdvReac Type Severity Reaction Status Date / Time No Known Drug Allergies Allergy Verified 05/31/24 10:13 Review of Systems Review of Systems Narrative: Pertinent positive and negative findings as per HPI Patient History Medical History (Updated 04/03/25 @ 23:19 by Talisha Matamoros MD) PTSD (post-traumatic stress disorder) Schizophrenia Hallucinations Anxiety Depression Social History Smoking Status: Never smoker alcohol intake: current substance use type: does not use Smoking Status: Never smoker tobacco type: vaping alcohol intake frequency: holidays/special occasions only Exam Initial Vital Signs Initial Vital Signs: Vital Signs Pulse Oximetry 95 04/03/25 20:19 General: BMI 51, somnolent but arousable and can answer questions, complaining of headache HEENT: Moist mucous membranes, normal sclera with reactive pupils, midposition Respiratory: Lungs are clear to auscultation, no wheezing no rales no rhonchi. Cardiac: Tachycardic but otherwise Regular rate and rhythm no murmurs no bruits Abdomen: Soft, nontender, no rebound or guarding, no flank pain Skin: Warm and dry, no rashes Neurologic: Somnolent but responsive, moving all extremities Extremities: No trauma, well perfused Psych: Cooperative, minimally interactive, poor eye contact Course Orders Ordered: ED Orders 04/03/25 20:17 XR chest 1V Stat EKG-12 Lead Stat EKG-12 Lead Stat 04/03/25 20:27 CT head/brain wo con Stat 04/03/25 20:35 Complete Blood Count AUTO DIFF Stat Comprehensive Metabolic Panel Stat ETOH [Ethanol (ETOH)] Stat Lipase Stat Magnesium Stat NT-proBNP (BNP-Adult 18+) Stat PTT Partial Thromboplastin [place] Stat Prothrombin Time INR Stat Troponin & CK Cardiac Panel Stat 04/03/25 21:41 VBG [Venous Blood Gas] STAT 04/03/25 21:57 Venous Blood Gas Routine Discontinued Medications Aspirin (Aspirin 81 Mg Chew Tab) 324 mg PO NOW ONE Stop: 04/03/25 20:18 Last Admin: 04/03/25 20:30 Dose: 324 mg Documented By: JESSIKA Labetalol HCl (Labetalol 20 Mg/4 Ml Syringe) 20 mg IV NOW ONE Stop: 04/03/25 20:28 Last Admin: 04/03/25 20:31 Dose: 20 mg Documented By: JESSIKA Vital Signs Vital signs: Vital Signs - 8 hr 04/03/25 20:19 04/03/25 20:20 04/03/25 20:20 Temperature Pulse Rate 109 H Respiratory Rate Blood Pressure 175/107 H Pulse Oximetry 95 96 Oxygen Delivery Method Oxygen Flow Rate 04/03/25 20:24 04/03/25 20:30 04/03/25 20:36 Temperature 98.3 F Pulse Rate 106 H 100 H 95 H Respiratory Rate 22 Blood Pressure 175/107 H Pulse Oximetry 95 96 94 Oxygen Delivery Method Room Air Oxygen Flow Rate 04/03/25 20:36 04/03/25 20:38 04/03/25 20:38 Temperature Pulse Rate 86 Respiratory Rate Blood Pressure 125/83 131/73 Pulse Oximetry 95 Oxygen Delivery Method Oxygen Flow Rate 04/03/25 20:56 04/03/25 20:56 04/03/25 21:00 Temperature Pulse Rate 80 82 Respiratory Rate 14 17 Blood Pressure 133/74 Pulse Oximetry 93 96 Oxygen Delivery Method Oximask Oxygen Flow Rate 2 04/03/25 21:00 04/03/25 21:30 04/03/25 21:30 Temperature Pulse Rate 80 Respiratory Rate 16 Blood Pressure 127/67 139/85 Pulse Oximetry 93 Oxygen Delivery Method Oxygen Flow Rate 04/03/25 22:00 04/03/25 22:00 04/03/25 22:30 Temperature Pulse Rate 83 80 Respiratory Rate 18 16 Blood Pressure 155/90 H Pulse Oximetry 97 96 Oxygen Delivery Method Oxygen Flow Rate 04/03/25 22:32 04/03/25 22:32 04/03/25 22:32 Temperature Pulse Rate 80 Respiratory Rate 17 Blood Pressure 138/84 139/84 Pulse Oximetry 98 Oxygen Delivery Method Oxygen Flow Rate 04/03/25 23:00 Temperature Pulse Rate 83 Respiratory Rate Blood Pressure Pulse Oximetry Oxygen Delivery Method Oxygen Flow Rate Medical Decision Making Lab Data 04/03/25 20:35 04/03/25 20:35 Labs: Lab Results 04/03/25 04/03/25 Range/Units 20:35 21:57 WBC 8.8 (4.5-11.0) X10^3/uL RBC 4.57 (4.5-5.9) X10^6/uL Hgb 13.8 (13.5-17.5) g/dL Hct 41.2 (41-53) % MCV 90.1 (80-100) fL MCH 30.1 (26-34) PG MCHC 33.4 (30-36) % RDW 15.0 H (11.6-14.8) % Plt Count 264 (150-400) X10^3/uL Neut % (Auto) 66.3 (50-75) % Lymph % (Auto) 22.8 L (25-40) % [place] % (Auto) 8.8 (3-14) % Eos % (Auto) 1.3 L (2-4) % Baso % (Auto) 0.8 (0-2) % Neut # (Auto) 5800 (7778-4656) /uL Lymph # (Auto) 2000 (6142-7429) /uL [place] # (Auto) 800 (0-900) /uL Eos # (Auto) 100 (0-450) /uL Baso # (Auto) 100 (0-100) /uL PT 11.7 (9.4-12.5) SECONDS INR 1.0 (0.9-1.3) APTT 30 (25.1-36.5) SECONDS VBG pH 7.33 (7.33-7.43) VBG pCO2 43.9 L (45-50) mmHg VBG pO2 41 (35-45) mmHg VBG HCO3 23 L (24-28) mmol/L VBG Total CO2 22 L (24-29) mmol/L VBG O2 Saturation 72 (70-75) % VBG Base Excess -2.7 L (0-4) mmol/L Sodium 139 (137-145) mmol/L Potassium 3.5 (3.4-5.1) mmol/L Chloride 103 (98-107) mmol/L Carbon Dioxide 27 (22-32) mmol/L BUN 11 (9-20) mg/dL Creatinine 0.87 (0.66-1.25) mg/dL Estimated GFR > 60 (>60) mL/min BUN/Creatinine Ratio 12.6 (6-22) Glucose 90 (70-99) mg/dL Calcium 9.7 (8.4-10.2) mg/dL Magnesium 2.3 (1.6-2.3) mg/dL Total Bilirubin 0.5 (0.2-1.3) mg/dL AST 143 H (17-59) IU/L ALT 230 H (<50) IU/L Alkaline Phosphatase 66 (38-126) U/L Total Creatine Kinase 106 (55-170) U/L Troponin I < 0.012 (0.01-0.034) ng/mL NT-Pro-B Natriuret Pep < 20 (<125) pg/mL Total Protein 8.5 H (6.3-8.2) g/dL Albumin 4.7 (3.5-5.0) g/dL Globulin 3.8 (1.7-4.1) g/dL Albumin/Globulin Ratio 1.2 (1.0-2.8) Lipase 104 (23-300) U/L Ethyl Alcohol < 10 (<10) mg/dL MDM Narrative Medical decision making narrative: CC: Chest pain, fatigue, headache, confusion Complicating co-morbidities: BMI of 51, sleep apnea inadequately treated, untreated hypertension, acute marital stressors with his choosing to not stayed home for the last 2 days Chart notes indicate that he may have a diagnosis of schizophrenia Data collected from: patient, Differential considered: Blood pressure was initially 1 and 75/107 possibility of hypertensive crisis with head pain, confusion and chest pain entertained. Acute coronary syndrome, intoxication, acute on chronic respiratory failure secondary to his sleep apnea and restrictive lung disease from his BMI 51 Exam documented above, pertinent findings include: Somnolent, will arouse to direct questioning, pupils are midposition, lungs are clear abdomen is obese, soft nontender. No significant lower extremity edema. Lab Test results independently reviewed as above. Pertinent findings: CBC is unremarkable Chemistries are reassuring, normal renal function and electrolytes Elevated AST and ALT at 143. and 230 with normal bilirubin and alk-phos. Transaminases has been elevated in May of 2024 but they are more than twice as high at this time Troponin is undetected No congestive heart failure Alcohol is undetectable He was unable to produce any urine for sampling Blood glass shows mild CO2 retention with a CO2 of 43.9, venous pH of 7.3 Independently reviewed EKG: Sinus rhythm at a rate of 100, no ischemic changes Imaging studies independently reviewed: CT scan of the head shows no acute abnormalities Chest x-ray is unremarkable Treatments: 20 mg of IV labetalol and blood pressure was down to 139/84, heart rate came down to 83, Re-evaluations: Severe sleep apnea. When awake oxygen saturations on room air at 98% when asleep dropping down into the low 80s and this is sleeping at an upright incline Discussion: 29-year-old gentleman brought in by his with concerns for altered mental status. Known severe sleep apnea. No evidence of significant hypertensive crisis, acute coronary syndrome, stroke, PRES, hypercarbic respiratory failure, infection, liver failure, renal failure. After lab work has been done, his again left the emergency department explaining that he was being inappropriate and she did not need to deal with that. Shortly thereafter patient got up, voided all over the floor of his room, pull dizzy IV out and chose to leave the department against medical advice prior to discharge instructions being given. He did seem much more alert as he was walking out the door. Still not confirmed is possibility of schizophrenia, was not able to go back and discuss this medical record notation with either the patient or his prior to her leaving to avoid his abusive comments and him leaving against medical advice Discharge Plan Departure Patient Disposition: Left Against Medical Advice Clinical Impression: Left against medical advice Altered mental status Qualifiers: Altered mental status type: unspecified Qualified Code(s): R41.82 - Altered mental status, unspecified Chest pain Qualifiers: Chest pain type: unspecified Qualified Code(s): R07.9 - Chest pain, unspecified Hypertension Qualifiers: Hypertension type: primary hypertension Qualified Code(s): I10 - Essential (primary) hypertension Apnea, sleep Qualifiers: Sleep apnea type: unspecified type Qualified Code(s): G47.30 - Sleep apnea, unspecified Prescriptions: No Action albuterol sulfate 90 mcg/actuation HFA aerosol inhaler 2 puff inhalation Q6H PRN (Reason: shortness of breath or wheezing) Qty: 8.5 0RF Stand Alone Forms: Patient Portal/API, Against Med. Advice (Azeri)
[2025-04-03 21:27] LABS: Ethanol (ETOH) < 10 mg/dL (<10)
[2025-04-03 22:00] LABS: Base Excess VBG -2.7 mmol/L (0-4); HCO3 VBG 23 mmol/L (24-28); Oxygen Saturation VBG 72 % (70-75); PCO2 VBG 43.9 mmHg (45-50); PO2 VBG 41 mmHg (35-45); Total CO2 VBG 22 mmol/L (24-29); pH VBG 7.33 (7.33-7.43)
== END 2025-04-03 23:10 | disposition left against medical advice (07) ==
PROVIDERS: Emergency Provider Emergency Medicine
DX: R41.82 Altered mental status, unspecified (principal); R07.9 Chest pain, unspecified; I10 Essential (primary) hypertension; G47.30 Sleep apnea, unspecified; E66.9 Obesity, unspecified; Z68.43 Body mass index [BMI] 50.0-59.9, adult
CPT/HCPCS: 36415; 70450; 71045; 80053; 80320; 82550; 82805; 83690; 83735; 83880; 84484; 85025; 85610; 85730; 93005; 93010; 96374; 99284

== ENCOUNTER 2025-04-25 00:06 | Emergency (ER) | payer OTHER, MEDICAID, SELFPAY ==
[2025-04-25] VITALS (16 sets, daily range): BP systolic 123–150; BP diastolic 58–71; PULSE 63–85; RESP 13–32; TEMP 37.1; O2SAT 94–98; BMI 50.8
--- NOTE | 2025-04-25 00:24 | DI.RAD.S_ITS ---
PROCEDURE: XR CHEST 1V INDICATIONS: Chest Pain TECHNIQUE: One view of the chest was acquired. COMPARISON: [facility], CR, XR CHEST 1V, 04/03/2025, 20:32. FINDINGS: Surgical changes and devices: None. Lungs and pleura: Poor inspiratory effort. No distinct consolidations or effusions. Mediastinum: Mediastinal contours appear normal. Heart size is normal. Bones and chest wall: No suspicious bony lesions. Overlying soft tissues appear unremarkable. IMPRESSION: Poor inspiratory effort without gross consolidations or effusions. Dictated by: Lynne Richardson M.D. on 04/25/2025 at 1:07 Approved by: Lynne Richardson M.D. on 04/25/2025 at 1:08
--- NOTE | 2025-04-25 00:26 | PC.NURSE ---
Pt is unaware of his medication dosings.
--- NOTE | 2025-04-25 00:26 | ED.CHESTPAIN ---
HPI - Chest Pain General Chief Complaint: Chest Pain Stated Complaint: Syncopal Episode History of Present Illness HPI narrative: 29-year-old gentleman history of hypothyroidism sleep apnea high blood pressure had a near syncopal episode last night, chest tightness, shortness breath, and increased leg swelling bilaterally, given aspirin and 2 inch nitro paste prior to arrival here. Patient is under a lot of stress at this time as he was from his and was about to get and now they are back together. Denies any recent drinking or illicit drug use. He was seen at [place] 2 weeks ago ER with similar presentation with negative workup at that time. Patient had a follow up appointment with [facility] but missed the appointment for presumed CHF workup per his PCP referral. Other than what is stated 14 point review system is negative. Related Data Home Medications ?Medication ?Instructions ?Recorded ?Confirmed levothyroxine 50 mcg tablet 25 mcg PO DAILY 04/25/25 04/25/25 (Levo-T) lisinopril 5 mg tablet 2.5 mg PO DAILY 04/25/25 04/25/25 losartan 25 mg tablet 25 mg PO DAILY 04/25/25 04/25/25 Previous Rx's ?Medication ?Instructions ?Recorded albuterol sulfate 90 mcg/actuation 2 puff inhalation Q6H PRN 05/31/24 aerosol inhaler shortness of breath or wheezing #8.5 grams naltrexone 50 mg tablet 50 mg PO DAILY #30 tabs 04/25/25 Allergies Allergy/AdvReac Type Severity Reaction Status Date / Time No Known Drug Allergies Allergy Verified 04/25/25 00:09 Review of Systems Review of Systems ROS Unobtainable: All systems reviewed & are unremarkable except as noted in HPI and below Patient History Medical History (Updated 04/25/25 @ 03:24 by Luis Manuel Ambrose DO) PTSD (post-traumatic stress disorder) Schizophrenia Hallucinations Anxiety Depression Social History alcohol intake: current substance use type: does not use Smoking Status: Former smoker tobacco type: vaping alcohol intake frequency: holidays/special occasions only Exam Narrative Exam Narrative: GENERAL: [84] year old patient appears stated age. Well-developed patient, in mild distress. HEAD: Atraumatic. Normocephalic. EYES: Pupils equal round and reactive. Extraocular motions intact. No scleral icterus. No injection or drainage. ENT: Nose without bleeding, purulent drainage. Throat without erythema, tonsillar hypertrophy or exudate. Airway patent. NECK: Trachea midline. Non tender CARDIOVASCULAR: Regular rate and rhythm without murmurs, gallops, or rubs. RESPIRATORY: Clear to auscultation. Breath sounds equal bilaterally. No wheezes, rales, or rhonchi. GASTROINTESTINAL: Abdomen soft, non-tender, nondistended. EXTREMITIES: No edema or joint tenderness. BACK: Nontender without deformity or crepitance. No flank tenderness. NEURO: AOx3. SKIN: No rash or erythema of visible areas Initial Vital Signs Initial Vital Signs: Vital Signs Temperature 98.7 F 04/25/25 00:10 Pulse Rate 85 04/25/25 00:10 Respiratory Rate 18 04/25/25 00:10 Blood Pressure 123/71 04/25/25 00:10 Pulse Oximetry 95 04/25/25 00:10 Oxygen Delivery Method Room Air 04/25/25 00:10 Course Orders Ordered: ED Orders 04/25/25 00:24 XR chest 1V Stat Complete Blood Count AUTO DIFF Stat Comprehensive Metabolic Panel Stat Lipase Stat Magnesium Stat NT-proBNP (BNP-Adult 18+) Stat PTT Partial Thromboplastin [place] Stat Prothrombin Time INR Stat Troponin & CK Cardiac Panel Stat EKG-12 Lead Stat 04/25/25 02:30 Troponin I Urgent Discontinued Medications Aspirin (Aspirin 81 Mg Chew Tab) 324 mg PO NOW ONE Stop: 04/25/25 00:24 Vital Signs Vital signs: Vital Signs - 8 hr 04/25/25 00:10 Temperature 98.7 F Pulse Rate 85 Respiratory Rate 18 Blood Pressure 123/71 Pulse Oximetry 95 Oxygen Delivery Method Room Air MDM - Chest Pain Imaging Data Chest x-ray: Radiologist's Impression: [address] [address] XRay Report Signed Patient: Otilio Sanches III MR#: [id number] : 1995 Acct:[id number] Age/Sex: 29 / M Date of Service: 04/25/25 Loc: ED Accession Number: [id number] Procedure: XR chest 1V Ordering Provider: Luis Manuel Ambrose D.O. PROCEDURE: XR CHEST 1V INDICATIONS: Chest Pain TECHNIQUE: One view of the chest was acquired. COMPARISON: [facility], CR, XR CHEST 1V, 04/03/2025, 20:32. FINDINGS: Surgical changes and devices: None. Lungs and pleura: Poor inspiratory effort. No distinct consolidations or effusions. Mediastinum: Mediastinal contours appear normal. Heart size is normal. Bones and chest wall: No suspicious bony lesions. Overlying soft tissues appear unremarkable. IMPRESSION: Poor inspiratory effort without gross consolidations or effusions. ECG Data Interpretation: NSR HR 80 [place] 192 QRS [address]-t wave change Unchanged from 04/03/25 MDM Narrative Medical decision making narrative: All lab work, vital signs, nurse triage note, medication list, previous ER visits, and all imaging studies reviewed. Chest x-ray poor inspiratory effort without gross consolidation or effusion. Hemoglobin 12.2 glucose 107 troponin normal BNP 21 AST 99 ALT 179 urine drug screen positive for meth benzos and cocaine. Differential diagnosis orthostatic hypotension, polysubstance abuse, alcohol withdrawal, electrolyte derangement. . Mom in room also states he also likes to drink etoh and needs help to quit. D/c home on naltrexone Discharge Plan Departure Patient Disposition: Home Clinical Impression: Polysubstance abuse, Near syncope Instructions: DI for Substance Use Disorder Activity Restrictions/Additional Instructions: Return with new or worsening symptoms. Take medicines as directed. Follow up with PCP in 1-2 weeks for re-evaluation. Prescriptions: New naltrexone 50 mg tablet 50 mg PO DAILY Qty: 30 0RF No Action albuterol sulfate 90 mcg/actuation HFA aerosol inhaler 2 puff inhalation Q6H PRN (Reason: shortness of breath or wheezing) Qty: 8.5 0RF lisinopril 5 mg tablet 2.5 mg PO DAILY losartan 25 mg tablet 25 mg PO DAILY levothyroxine [Levo-T] 50 mcg tablet 25 mcg PO DAILY Stand Alone Forms: Patient Portal/API
--- NOTE | 2025-04-25 00:41 | EKG_ITS ---
[address] [address] Test Date: 2025-04-25 Pat Name: Otilio Sanches Department: [facility] Room: Gender: Male [place] Cutter: TRISTIN : 1995 Requested By: Order Number: [id number] Reading MD: Luis Armando Marquez Measurements Intervals [place] Rate: 80 P: 25 TN: 192 QRS: 8 QRSD: 94 T: 28 QT: 384 QTc: 442 Interpretive Statements Normal sinus rhythm Electronically Signed On 05-03-2025 13:53:10 PDT by Luis Armando Marquez
[2025-04-25 00:57] LABS: Add Manual Diff / Slide Review NO; Hematocrit 36.0 % (41-53); Hemoglobin 12.2 g/dL (13.5-17.5); Lymphocytes Absolute Auto 2100 /uL (1100-4500); Mean Corpuscular HGB Conc 34.0 % (30-36); Mean Corpuscular Hemoglobin 30.3 PG (26-34); Mean Corpuscular Volume 89.3 fL (80-100); Platelet Count 218 X10^3/uL (150-400)
[2025-04-25 01:09] LABS: INR 1.0 (0.9-1.3); Prothrombin Time 10.8 SECONDS (9.4-12.5)
[2025-04-25 01:11] LABS: PTT Partial Thromboplastin Tim 30 SECONDS (25.1-36.5)
[2025-04-25 01:12] LABS: Alanine Aminotransferase 179 IU/L (<50); Albumin 4.2 g/dL (3.5-5.0); Albumin Globulin Ratio 1.4 (1.0-2.8); Alkaline Phosphatase 58 U/L (38-126); Blood Urea Nitrogen 11 mg/dL (9-20); Calcium 8.6 mg/dL (8.4-10.2); Carbon Dioxide 22 mmol/L (22-32); Chloride 106 mmol/L (98-107); Creatine Kinase 122 U/L (55-170); Estimated Glomerular Filt Rate > 60 mL/min (>60); Globulin 3.0 g/dL (1.7-4.1); Glucose 107 mg/dL (70-99); HEMOLYSIS 41 (0-50); Lipase 128 U/L (23-300); Magnesium 2.3 mg/dL (1.6-2.3); Potassium 3.9 mmol/L (3.4-5.1); Sodium 137 mmol/L (137-145); Total Protein 7.2 g/dL (6.3-8.2)
[2025-04-25 01:24] LABS: NT-proBNP (BNP-Adult 18+) 21 pg/mL (<125); Troponin I < 0.012 ng/mL (0.01-0.034)
--- NOTE | 2025-04-25 02:17 | PC.NURSE ---
pt was standing for the orthostatic vitals and was also providing a urine sample at this time. While patient was standing he began to tip back and fell onto the stretcher. Did not hit head or back at all. Pt immediately came to and said that I just passed out dude. I was trying to push to pee and I passed out. Orthostatic Vitals: Lying - BP 136/67 P 77 Sitting- BP 133/62 P 79 Standing - BP 138/63 P 82
[2025-04-25] MEDS: LACTATED RINGERS 1,000 ML 1000 ML IV (02:34)
[2025-04-25 02:55] LABS: Ur Creatinine Normal (Normal); Ur Specific Gravity Normal (Normal); Urine Methamphetamines Positive (Negative); Urine THC Negative (Negative); Urine pH Normal (Normal)
[2025-04-25 02:56] LABS: Urine MDMA Negative (Negative); Urine Tricyclic Antidepressant Negative (Negative)
== END 2025-04-25 03:30 | disposition home or self-care (01) ==
PROVIDERS: Emergency Provider Family Medicine
DX: R55 Syncope and collapse (principal); F19.10 Other psychoactive substance abuse, uncomplicated; R06.02 Shortness of breath; R60.9 Edema, unspecified
CPT/HCPCS: 36415; 71045; 80053; 80305; 81003; 82550; 83690; 83735; 83880; 84484; 85025; 85379; 85610; 85730; 93005; 96360; 99284